=== PATIENT | male | born 1950 | race Caucasian/White ===

== ENCOUNTER 2023-04-29 09:55 | Outpatient (CLI) | payer MEDICARE, BC, SELFPAY | END 2023-04-29 09:56 | disposition home or self-care (01) | PROVIDERS: PCP Family Medicine; Visit Provider Family Medicine | DX: I10 Essential (primary) hypertension (principal); E78.5 Hyperlipidemia, unspecified | CPT/HCPCS: 80048; 80061 ==

== ENCOUNTER 2023-05-23 14:21 | Outpatient (CLI) | payer MEDICARE, BC, SELFPAY | END 2023-05-23 14:22 | disposition home or self-care (01) | PROVIDERS: PCP Family Medicine; Visit Provider Family Medicine | DX: Z12.5 Encounter for screening for malignant neoplasm of prostate (principal); I10 Essential (primary) hypertension; E78.5 Hyperlipidemia, unspecified | CPT/HCPCS: 84153 ==

== ENCOUNTER 2023-05-30 12:46 | Outpatient (CLI) | payer MEDICARE, BC, SELFPAY ==
--- NOTE | 2023-05-30 13:00 | CRLHL7_ITS ---
For Patients: As a result of the Century Cures Act, medical imaging exams and procedure reports are released immediately into your electronic medical record. You may view this report before your referring provider. If you have questions, please contact your health care provider. INDICATION: Lung cancer screening. History of smoking. High risk patient with greater than 48 pack-year smoking history. TECHNIQUE: Low-dose lung cancer screening non-contrast CT chest. Dose reduction techniques were used. COMPARISON: None. FINDINGS: NODULES: None. LUNGS AND PLEURA: Emphysematous changes. MEDIASTINUM: Atherosclerotic changes. No adenopathy. Subcentimeter nodule in the right thyroid lobe. CORONARY ARTERY CALCIFICATION: Mild. LIMITED UPPER ABDOMEN: Gallbladder is partially contracted about calcified stone material. MUSCULOSKELETAL: Normal. IMPRESSION: Negative for lung cancer screening purposes. LUNG-RADS CATEGORY: 1: Negative. RADIOLOGIST RECOMMENDATION: Continue annual screening with low-dose CT chest in 12 months. Please note that all CT scans at this facility use dose modulation, iterative reconstruction, and/or weight-based dosing when appropriate to reduce radiation dose to as low as reasonably achievable. Dictated by Spencer Pichardo MD @ 05/30/2023 2:53:09 PM (Electronically Signed)
== END 2023-05-30 12:47 | disposition home or self-care (01) ==
PROVIDERS: PCP Family Medicine; Visit Provider Family Medicine
DX: Z12.2 Encounter for screening for malignant neoplasm of respiratory organs (principal); J44.9 Chronic obstructive pulmonary disease, unspecified; F17.201 Nicotine dependence, unspecified, in remission; F17.219 Nicotine dependence, cigarettes, with unspecified nicotine-induced disorders; Z87.891 Personal history of nicotine dependence
CPT/HCPCS: 71271

== ENCOUNTER 2023-10-30 07:55 | Outpatient (CLI) | payer MEDICARE, BC, SELFPAY ==
--- NOTE | 2023-10-30 09:47 | W.ANESCHARGE ---
Anesthesia Charges Start Date/Time Anesthesia Start Date: 10/30/23 Anesthesia Start Time: 08:50 Stop Date/Time Anesthesia Stop Date: 10/30/23 Anesthesia Stop Time: 10:15 Summary Extremes of Age - Over 70 or under 1: MDA
--- NOTE | 2023-10-30 10:17 | W.ANESCHARGE ---
Anesthesia Charges Start Date/Time Anesthesia Start Date: 10/30/23 Anesthesia Start Time: 08:50 Stop Date/Time Anesthesia Stop Date: 10/30/23 Anesthesia Stop Time: 10:15
== END 2023-10-30 07:56 | disposition home or self-care (01) ==
LOC: OP CLINIC 07:56
PROVIDERS: PCP Family Medicine; Visit Provider Surgery
DX: R19.5 Other fecal abnormalities (principal); K63.5 Polyp of colon; K62.1 Rectal polyp
CPT/HCPCS: 00811; 45385; 88305; 99100; J2704

== ENCOUNTER 2023-12-30 14:20 | Outpatient (CLI) | payer MEDICARE, BC, SELFPAY | END 2023-12-30 14:21 | disposition home or self-care (01) | LOC: LKVREF 14:22 | PROVIDERS: PCP Family Medicine; Visit Provider Nurse Practitioner Family | DX: M79.671 Pain in right foot (principal) | CPT/HCPCS: 84550 ==

== ENCOUNTER 2024-06-01 12:51 | Outpatient (CLI) | payer MEDICARE, BC, SELFPAY ==
--- NOTE | 2024-06-01 13:00 | CRLHL7_ITS ---
For Patients: As a result of the Century Cures Act, medical imaging exams and procedure reports are released immediately into your electronic medical record. You may view this report before your referring provider. If you have questions, please contact your health care provider. INDICATION: Lung cancer screening. Smoking history. TECHNIQUE: CT chest low dose without contrast. COMPARISON: CT chest dated 05/30/2023. FINDINGS: Pulmonary nodules: None. Lungs and pleural spaces: Redemonstrated minimal bibasilar atelectasis/scarring. Apical predominant centrilobular emphysema. Lungs are otherwise clear. Heart and vasculature: Heart size is normal. Thoracic aorta and pulmonary artery are normal in caliber. Lymph nodes and mediastinum: No mediastinal, hilar, or axillary adenopathy. Chest wall: Unremarkable. Upper abdomen: Normal. Bones: Unremarkable for age. IMPRESSION: No suspicious lung lesions. Lung-RADS Category 1: NEGATIVE. Continue annual screening with LDCT in 12 months. Please note that all CT scans at this facility use dose modulation, iterative reconstruction, and/or weight-based dosing when appropriate to reduce radiation dose to as low as reasonably achievable. Dictated by Matthieu Berrios MD @ 06/01/2024 1:41:27 PM (Electronically Signed)
== END 2024-06-01 12:52 | disposition home or self-care (01) ==
LOC: CT 12:52
PROVIDERS: PCP Family Medicine; Visit Provider Family Medicine
DX: Z12.2 Encounter for screening for malignant neoplasm of respiratory organs (principal); F17.210 Nicotine dependence, cigarettes, uncomplicated
CPT/HCPCS: 71271

== ENCOUNTER 2024-07-21 14:18 | Outpatient (CLI) | payer MEDICARE, BC, SELFPAY | END 2024-07-21 14:19 | disposition home or self-care (01) | LOC: LKVREF 14:19 | PROVIDERS: PCP Family Medicine; Visit Provider Family Medicine | DX: Z01.818 Encounter for other preprocedural examination (principal); I10 Essential (primary) hypertension | CPT/HCPCS: 80048 ==

== ENCOUNTER 2024-08-05 12:32 | Outpatient (CLI) | payer MEDICARE, BC, SELFPAY ==
--- NOTE | 2024-08-05 14:09 | W.ANESCHARGE ---
Anesthesia Charges Start Date/Time Anesthesia Start Date: 08/05/24 Anesthesia Start Time: 13:15 Stop Date/Time Anesthesia Stop Date: 08/05/24 Anesthesia Stop Time: 14:05
--- NOTE | 2024-08-05 14:23 | W.ANESCHARGE ---
Anesthesia Charges Start Date/Time Anesthesia Start Date: 08/05/24 Anesthesia Start Time: 13:15 Stop Date/Time Anesthesia Stop Date: 08/05/24 Anesthesia Stop Time: 14:05 Summary Extremes of Age - Over 70 or under 1: MDA
== END 2024-08-05 12:33 | disposition home or self-care (01) ==
LOC: OP CLINIC 12:32
PROVIDERS: PCP Family Medicine; Visit Provider Surgery
DX: D12.2 Benign neoplasm of ascending colon (principal); D12.3 Benign neoplasm of transverse colon; D12.4 Benign neoplasm of descending colon; Z86.0101 Personal history of adenomatous and serrated colon polyps; Z98.890 Other specified postprocedural states; Z09 Encounter for follow-up examination after completed treatment for conditions other than malignant neoplasm
CPT/HCPCS: 00811; 45385; 88305; 99100

== ENCOUNTER 2025-05-11 11:05 | Outpatient (CLI) | payer MEDICARE, BC, SELFPAY | END 2025-05-11 11:06 | disposition home or self-care (01) | PROVIDERS: PCP Family Medicine; Visit Provider Family Medicine | DX: E78.00 Pure hypercholesterolemia, unspecified (principal); I10 Essential (primary) hypertension; M1A.9XX0 Chronic gout, unspecified, without tophus (tophi); Z12.5 Encounter for screening for malignant neoplasm of prostate | CPT/HCPCS: 80048; 80061; 84550; G0103 ==

== ENCOUNTER 2025-06-02 12:59 | Outpatient (CLI) | payer MEDICARE, BC, SELFPAY ==
--- NOTE | 2025-06-02 13:00 | CRLHL7_ITS ---
For Patients: As a result of the Cures Act, medical imaging exams and procedure reports are released immediately into your electronic medical record. You may view this report before your referring provider. If you have questions, please contact your health care provider. INDICATION: History of tobacco use. COMPARISON: Chest CT scans dated 01 June 2024 and 30 May 2023. TECHNIQUE: Noncontrast low-dose screening chest CT scan. FINDINGS: No mediastinal or hilar adenopathy. No axillary adenopathy. Atherosclerotic vascular calcifications. The lungs show for no focal pulmonary opacities. No pneumothorax. No focal abnormalities identified in the visualized portions of the liver, spleen, pancreas, adrenal glands, and the upper portion of the kidneys. IMPRESSION: 1. No focal pulmonary opacities. Lung-RADS category 1: Negative. Recommend continued annual screening with a low-dose chest CT scan in 12 months. Please note that all CT scans at this facility use dose modulation, iterative reconstruction, and/or weight-based dosing when appropriate to reduce radiation dose to as low as reasonably achievable. Dictated by Wesley Hicks MD @ 06/06/2025 8:37:20 AM (Electronically Signed)
== END 2025-06-02 13:00 | disposition home or self-care (01) ==
LOC: CT 13:00
PROVIDERS: PCP Family Medicine; Visit Provider Family Medicine
DX: Z12.2 Encounter for screening for malignant neoplasm of respiratory organs (principal); F17.210 Nicotine dependence, cigarettes, uncomplicated
CPT/HCPCS: 71271